=== PATIENT | male | born 1965 | race African-American/Black ===

== ENCOUNTER 2017-07-27 17:25 | Emergency (ER) | payer MEDICARE ==
[2017-07-27 17:35] VITALS: BP 112/72
--- NOTE | 2017-07-27 19:07 | Emergency Department Report ---
ED Allergic Reaction HPI - General Chief complaint: Upper Respiratory Infection Stated complaint: HEADACHE Time Seen by Provider: 07/27/17 18:46 Source: patient Mode of arrival: Ambulatory Limitations: No Limitations - History of Present Illness Initial Comments: Patient is a 51-year-old gentleman who is presenting with cough congestion and headache. Patient states symptoms been present for about 2 days. Patient is a cough productive of clear sputum. Patient is a pressure sensation in the forehead that he states is 8 out of 10 in severity. Patient says rhinorrhea. Patient denies any nausea vomiting next if no sore throat at this time. - Related Data Home Medications Medication Instructions Recorded Confirmed Last Taken Fenofibrate Nanocrystallized 48 mg PO DAILY 03/07/14 03/07/14 03/06/14 [Fenofibrate] 2000 SUMAtriptan SUCCINATE [Sumatriptan 100 mg PO PRN PRN 03/07/14 03/07/14 03/07/14 Succinate] 0005 Previous Rx's Medication Instructions Recorded Last Taken Type Azithromycin [Zithromax Z-SKYLER] 250 mg PO DAILY #6 tablet 03/07/14 Unknown Rx HYDROcodone/APAP 10-325 [[place] 1 each PO Q6HR PRN #16 tablet 03/07/14 Unknown Rx 10-325 mg TAB] predniSONE [Deltasone] 20 mg PO TID #15 tab 03/07/14 Unknown Rx Dicyclomine [Bentyl] 20 mg PO QID #30 tablet 03/26/15 Unknown Rx Ibuprofen [Motrin 600 MG tab] 600 mg PO Q8H PRN #30 tablet 03/26/15 Unknown Rx ALBUTEROL Inhaler [ProAir HFA 2 puff IH QID PRN #1 inhalation 07/27/17 Unknown Rx Inhaler] Amoxicillin/Potassium Clav 1 each PO BID #14 tablet 07/27/17 Unknown Rx [Augmentin 875-125 Tablet] HYDROcodone/APAP 5-325 [[place] 1 each PO Q4HR PRN #12 tablet 07/27/17 Unknown Rx 5/325] Allergies Allergy/AdvReac Type Severity Reaction Status Date / Time No Known Allergies Allergy Unverified 03/07/14 04:02 ED Review of Systems ROS: Stated complaint: HEADACHE Other details as noted in HPI Comment: All other systems reviewed and negative ED Past Medical Hx - Past Medical History Hx GERD: Yes Hx Headaches / Migraines: Yes Additional medical history: hyperlipidemia - Social History Smoking Status: Never Smoker Substance Use Type: None - Medications Home Medications: Home Medications Medication Instructions Recorded Confirmed Last Taken Type Azithromycin [Zithromax Z-SKYLER] 250 mg PO DAILY #6 tablet 03/07/14 Unknown Rx Fenofibrate Nanocrystallized 48 mg PO DAILY 03/07/14 03/07/14 03/06/14 History [Fenofibrate] 2000 HYDROcodone/APAP 10-325 [[place] 1 each PO Q6HR PRN #16 tablet 03/07/14 Unknown Rx 10-325 mg TAB] SUMAtriptan SUCCINATE [Sumatriptan 100 mg PO PRN PRN 03/07/14 03/07/14 03/07/14 History Succinate] 0005 predniSONE [Deltasone] 20 mg PO TID #15 tab 03/07/14 Unknown Rx Dicyclomine [Bentyl] 20 mg PO QID #30 tablet 03/26/15 Unknown Rx Ibuprofen [Motrin 600 MG tab] 600 mg PO Q8H PRN #30 tablet 03/26/15 Unknown Rx ALBUTEROL Inhaler [ProAir HFA 2 puff IH QID PRN #1 inhalation 07/27/17 Unknown Rx Inhaler] Amoxicillin/Potassium Clav 1 each PO BID #14 tablet 07/27/17 Unknown Rx [Augmentin 875-125 Tablet] HYDROcodone/APAP 5-325 [[place] 1 each PO Q4HR PRN #12 tablet 07/27/17 Unknown Rx 5/325] ED Physical Exam - General Limitations: No Limitations General appearance: alert, in no apparent distress - Head Head exam: Present: atraumatic, normocephalic, other (he has frontal sinus tenderness) - Eye Eye exam: Present: normal appearance - ENT ENT exam: Present: mucous membranes moist - Neck Neck exam: Present: normal inspection - Respiratory Respiratory exam: Present: normal lung sounds bilaterally. Absent: respiratory distress, wheezes, rales, rhonchi - Cardiovascular Cardiovascular Exam: Present: regular rate, normal rhythm. Absent: systolic murmur, diastolic murmur, rubs, gallop - GI/Abdominal GI/Abdominal exam: Present: soft, normal bowel sounds - Rectal Rectal exam: Present: deferred - Extremities Exam Extremities exam: Present: normal inspection - Back Exam Back exam: Present: normal inspection - Neurological Exam Neurological exam: Present: alert, oriented X3 - Psychiatric Psychiatric exam: Present: normal affect, normal mood - Skin Skin exam: Present: warm, dry, intact, normal color. Absent: rash ED Course Vital Signs 07/27/17 17:33 Temperature 98 F Pulse Rate 98 H Respiratory 18 Rate Blood Pressure 112/72 O2 Sat by Pulse 98 Oximetry ED Medical Decision Making - Medical Decision Making Be treated for acute sinusitis Critical care attestation.: If time is entered above; I have spent that time in minutes in the direct care of this critically ill patient, excluding procedure time. ED Disposition Clinical Impression: Sinusitis Qualifiers: Sinusitis location: frontal Chronicity: acute Recurrence: non-recurrent Qualified Code(s): J01.10 - Acute frontal sinusitis, unspecified Disposition: - TO HOME OR SELFCARE Is pt being admited?: No Does the pt Need Aspirin: No Condition: Stable Instructions: Sinusitis (ED) Referrals: [facility] [Outside] - 3-5 Days
== END 2017-07-27 19:26 | disposition home or self-care (01) ==
LOC: ED 17:25
DX: J32.1 Chronic frontal sinusitis (principal); K21.9 Gastro-esophageal reflux disease without esophagitis; G43.909 Migraine, unspecified, not intractable, without status migrainosus
CPT/HCPCS: 99282

== ENCOUNTER 2017-08-06 17:54 | Emergency (ER) | payer MEDICARE ==
[2017-08-06 20:24] VITALS: BP 108/72
[2017-08-06] MEDS ORDERED: MOTRIN PO ONE (21:59)
--- NOTE | 2017-08-06 21:59 | Emergency Department Report ---
ED Extremity Problem HPI - General Chief complaint: Extremity Problem,Nontraumatic Stated complaint: LEFT FOOT PAIN Time Seen by Provider: 08/06/17 21:48 Source: patient Mode of arrival: Ambulatory Limitations: No Limitations - History of Present Illness Initial comments: 51-year-old [place] male comes in complaint of left foot pain that started yesterday. Patient reports that his swelling and pain. He denies any trauma no fever no chills no nausea no vomiting. Denies any alcohol or smoking. He reports is not working. He reports he did not take any pain medication. She was recently seen here on 07/27/2017 was placed on Augmentin and [place] for pain. Patient was being treated for sinusitis. MD Complaint: extremity pain, extremity swelling -: days(s) (1) Location: left, other (foot) History of Same: No Severity scale (0 -10): 7 Quality: aching Consistency: intermittent Worsens with: weight bearing, walking Associated Symptoms: denies other symptoms - Related Data Home Medications Medication Instructions Recorded Confirmed Last Taken Fenofibrate Nanocrystallized 48 mg PO DAILY 03/07/14 03/07/14 03/06/14 [Fenofibrate] 2000 SUMAtriptan SUCCINATE [Sumatriptan 100 mg PO PRN PRN 03/07/14 03/07/14 03/07/14 Succinate] 0005 Previous Rx's Medication Instructions Recorded Last Taken Type Azithromycin [Zithromax Z-SKYLER] 250 mg PO DAILY #6 tablet 03/07/14 Unknown Rx HYDROcodone/APAP 10-325 [[place] 1 each PO Q6HR PRN #16 tablet 03/07/14 Unknown Rx 10-325 mg TAB] predniSONE [Deltasone] 20 mg PO TID #15 tab 03/07/14 Unknown Rx Dicyclomine [Bentyl] 20 mg PO QID #30 tablet 03/26/15 Unknown Rx Ibuprofen [Motrin 600 MG tab] 600 mg PO Q8H PRN #30 tablet 03/26/15 Unknown Rx ALBUTEROL Inhaler [ProAir HFA 2 puff IH QID PRN #1 inhalation 07/27/17 Unknown Rx Inhaler] Amoxicillin/Potassium Clav 1 each PO BID #14 tablet 07/27/17 Unknown Rx [Augmentin 875-125 Tablet] HYDROcodone/APAP 5-325 [[place] 1 each PO Q4HR PRN #12 tablet 07/27/17 Unknown Rx 5/325] Ibuprofen [Motrin 800 MG tab] 800 mg PO Q8HR #15 tablet 08/06/17 Unknown Rx Allergies Allergy/AdvReac Type Severity Reaction Status Date / Time No Known Allergies Allergy Verified 08/06/17 20:20 ED Review of Systems ROS: Stated complaint: LEFT FOOT PAIN Other details as noted in HPI Comment: All other systems reviewed and negative Musculoskeletal: joint swelling (left foot medial first metatarsal), arthralgia (left foot medial first metatarsal) ED Past Medical Hx - Past Medical History Previous Medical History?: Yes Hx GERD: Yes Hx Headaches / Migraines: Yes Additional medical history: hyperlipidemia - Surgical History Past Surgical History?: No - Social History Smoking Status: Never Smoker Substance Use Type: None - Medications Home Medications: Home Medications Medication Instructions Recorded Confirmed Last Taken Type Azithromycin [Zithromax Z-SKYLER] 250 mg PO DAILY #6 tablet 03/07/14 Unknown Rx Fenofibrate Nanocrystallized 48 mg PO DAILY 03/07/14 03/07/14 03/06/14 History [Fenofibrate] 2000 HYDROcodone/APAP 10-325 [[place] 1 each PO Q6HR PRN #16 tablet 03/07/14 Unknown Rx 10-325 mg TAB] SUMAtriptan SUCCINATE [Sumatriptan 100 mg PO PRN PRN 03/07/14 03/07/14 03/07/14 History Succinate] 0005 predniSONE [Deltasone] 20 mg PO TID #15 tab 03/07/14 Unknown Rx Dicyclomine [Bentyl] 20 mg PO QID #30 tablet 03/26/15 Unknown Rx Ibuprofen [Motrin 600 MG tab] 600 mg PO Q8H PRN #30 tablet 03/26/15 Unknown Rx ALBUTEROL Inhaler [ProAir HFA 2 puff IH QID PRN #1 inhalation 07/27/17 Unknown Rx Inhaler] Amoxicillin/Potassium Clav 1 each PO BID #14 tablet 07/27/17 Unknown Rx [Augmentin 875-125 Tablet] HYDROcodone/APAP 5-325 [[place] 1 each PO Q4HR PRN #12 tablet 07/27/17 Unknown Rx 5/325] Ibuprofen [Motrin 800 MG tab] 800 mg PO Q8HR #15 tablet 08/06/17 Unknown Rx ED Physical Exam - General Limitations: No Limitations General appearance: alert, in no apparent distress - Expanded Lower Extremity Exam Left Hip exam: Present: normal inspection, full ROM Upper Leg exam: Present: normal inspection, full ROM Knee exam: Present: normal inspection, full ROM Lower Leg exam: Present: normal inspection, full ROM Ankle exam: Present: normal inspection, full ROM Foot/Toe exam: Present: normal inspection, full ROM, tenderness (left foot medial first metatarsal). Absent: swelling, abrasion, laceration, ecchymosis, deformity, dislocation, erythema ED Course Vital Signs 08/06/17 20:21 Temperature 98.5 F Pulse Rate 66 Respiratory 16 Rate Blood Pressure 108/72 O2 Sat by Pulse 96 Oximetry ED Medical Decision Making - Medical Decision Making Patient's been evaluated but this provider fast track. Discussed the patient that he has had no trauma he's been on pain medication and has been on antibiotics. Discussed the patient he can try ibuprofen 800 mg. If symptoms persist he should follow up with his primary care provider Dr. Hess Critical care attestation.: If time is entered above; I have spent that time in minutes in the direct care of this critically ill patient, excluding procedure time. ED Disposition Clinical Impression: Foot pain, left Disposition: DC-01 TO HOME OR SELFCARE Is pt being admited?: No Does the pt Need Aspirin: No Condition: Stable Additional Instructions: Please take pain medication as prescribed. If symptoms persist or gets worse please follow up with her primary care provider. I highly recommended to change her shoes. Prescriptions: Ibuprofen [Motrin 800 MG tab] 800 mg PO Q8HR #15 tablet Referrals: PRIMARY CARE, [Primary Care Provider] - 3-5 Days
== END 2017-08-06 22:17 | disposition home or self-care (01) ==
LOC: ED 17:54
DX: M79.672 Pain in left foot (principal); K21.9 Gastro-esophageal reflux disease without esophagitis; E78.5 Hyperlipidemia, unspecified; G43.909 Migraine, unspecified, not intractable, without status migrainosus
CPT/HCPCS: 99282

== ENCOUNTER 2018-07-16 07:39 | Emergency (ER) | payer MEDICARE ==
[2018-07-16 07:44] VITALS: BP 118/68
--- NOTE | 2018-07-16 09:04 | Emergency Department Report ---
ED General Adult HPI - General Chief complaint: Abdominal Pain Stated complaint: HEADACHE/BODY ACHES Time Seen by Provider: 07/16/18 08:56 Source: patient Mode of arrival: Ambulatory Limitations: No Limitations - History of Present Illness Initial comments: Patient is 52 years old male, nontoxic, past medical history of GERD and migraine. Patient presented to the ER complaining of headache, abdominal pain and bilateral leg pain. Patient stated that he was diagnosed with pinched nerve in both leg and he is taking medication for that. Described his pain as epigastric for the last 5 days, burning sensation with no radiation. Patient denied any fever or chills. No cough, congestion or runny nose. Severity scale (0 -10): 9 - Related Data Home Medications Medication Instructions Recorded Confirmed Last Taken Fenofibrate Nanocrystallized 48 mg PO DAILY 03/07/14 03/07/14 03/06/14 [Fenofibrate] 2000 SUMAtriptan succinate [Sumatriptan 100 mg PO PRN PRN 03/07/14 03/07/14 03/07/14 Succinate] 0005 Previous Rx's Medication Instructions Recorded Last Taken Type Azithromycin [Zithromax Z-SKYLER] 250 mg PO DAILY #6 tablet 03/07/14 Unknown Rx HYDROcodone/APAP 10-325 [[place] 1 each PO Q6HR PRN #16 tablet 03/07/14 Unknown Rx 10-325 mg TAB] predniSONE [Deltasone] 20 mg PO TID #15 tab 03/07/14 Unknown Rx Dicyclomine [Bentyl] 20 mg PO QID #30 tablet 03/26/15 Unknown Rx Ibuprofen [Motrin 600 MG tab] 600 mg PO Q8H PRN #30 tablet 03/26/15 Unknown Rx ALBUTEROL Inhaler (OR & NICU) 2 puff IH QID PRN #1 inhalation 07/27/17 Unknown Rx [ProAir HFA Inhaler] Amoxicillin/Potassium Clav 1 each PO BID #14 tablet 07/27/17 Unknown Rx [Augmentin 875-125 Tablet] HYDROcodone/APAP 5-325 [[place] 1 each PO Q4HR PRN #12 tablet 07/27/17 Unknown Rx 5/325] Ibuprofen [Motrin 800 MG tab] 800 mg PO Q8HR #15 tablet 08/06/17 Unknown Rx Amoxicillin/Potassium Clav 1 each PO BID #14 tablet 02/01/18 Unknown Rx [Augmentin 875-125 Tablet] Fluticasone [Flonase] 1 spray NS QDAY #1 bottle 02/01/18 Unknown Rx predniSONE [Deltasone] 20 mg PO QDAY #5 tab 02/01/18 Unknown Rx traMADol [Ultram] 50 mg PO Q6HR PRN #10 tablet 02/01/18 Unknown Rx Allergies Allergy/AdvReac Type Severity Reaction Status Date / Time No Known Allergies Allergy Verified 07/16/18 07:41 ED Review of Systems ROS: Stated complaint: HEADACHE/BODY ACHES Other details as noted in HPI Comment: All other systems reviewed and negative Constitutional: denies: chills, fever Respiratory: denies: cough, orthopnea, shortness of breath, SOB with exertion, SOB at rest, wheezing Cardiovascular: denies: chest pain, palpitations Gastrointestinal: abdominal pain. denies: nausea, vomiting, diarrhea, constipation, hematemesis, melena, hematochezia Musculoskeletal: denies: back pain Neurological: denies: headache, weakness, numbness, paresthesias, confusion ED Past Medical Hx - Past Medical History Hx GERD: Yes Hx Headaches / Migraines: Yes Additional medical history: hyperlipidemia - Surgical History Past Surgical History?: No - Social History Smoking Status: Never Smoker Substance Use Type: None - Medications Home Medications: Home Medications Medication Instructions Recorded Confirmed Last Taken Type Azithromycin [Zithromax Z-SKYLER] 250 mg PO DAILY #6 tablet 03/07/14 Unknown Rx Fenofibrate Nanocrystallized 48 mg PO DAILY 03/07/14 03/07/14 03/06/14 History [Fenofibrate] 2000 HYDROcodone/APAP 10-325 [[place] 1 each PO Q6HR PRN #16 tablet 03/07/14 Unknown Rx 10-325 mg TAB] SUMAtriptan succinate [Sumatriptan 100 mg PO PRN PRN 03/07/14 03/07/14 03/07/14 History Succinate] 0005 predniSONE [Deltasone] 20 mg PO TID #15 tab 03/07/14 Unknown Rx Dicyclomine [Bentyl] 20 mg PO QID #30 tablet 03/26/15 Unknown Rx Ibuprofen [Motrin 600 MG tab] 600 mg PO Q8H PRN #30 tablet 03/26/15 Unknown Rx ALBUTEROL Inhaler (OR & NICU) 2 puff IH QID PRN #1 inhalation 07/27/17 Unknown Rx [ProAir HFA Inhaler] Amoxicillin/Potassium Clav 1 each PO BID #14 tablet 07/27/17 Unknown Rx [Augmentin 875-125 Tablet] HYDROcodone/APAP 5-325 [[place] 1 each PO Q4HR PRN #12 tablet 07/27/17 Unknown Rx 5/325] Ibuprofen [Motrin 800 MG tab] 800 mg PO Q8HR #15 tablet 08/06/17 Unknown Rx Amoxicillin/Potassium Clav 1 each PO BID #14 tablet 02/01/18 Unknown Rx [Augmentin 875-125 Tablet] Fluticasone [Flonase] 1 spray NS QDAY #1 bottle 02/01/18 Unknown Rx predniSONE [Deltasone] 20 mg PO QDAY #5 tab 02/01/18 Unknown Rx traMADol [Ultram] 50 mg PO Q6HR PRN #10 tablet 02/01/18 Unknown Rx ED Physical Exam - General Limitations: No Limitations General appearance: alert, in no apparent distress - Head Head exam: Present: atraumatic, normocephalic, normal inspection - Eye Eye exam: Present: normal appearance, PERRL - ENT ENT exam: Present: normal exam, normal orophraynx, mucous membranes moist - Neck Neck exam: Present: normal inspection, full ROM. Absent: tenderness, meningismus, lymphadenopathy, thyromegaly - Respiratory Respiratory exam: Present: normal lung sounds bilaterally - Cardiovascular Cardiovascular Exam: Present: regular rate, normal rhythm, normal heart sounds - GI/Abdominal GI/Abdominal exam: Present: soft, normal bowel sounds. Absent: distended, tenderness, guarding, rebound, rigid, organomegaly, mass, bruit, pulsatile mass, hernia - Extremities Exam Extremities exam: Present: normal inspection, full ROM, normal capillary refill - Back Exam Back exam: Present: normal inspection, full ROM. Absent: tenderness, CVA tenderness (R), CVA tenderness (L), muscle spasm, paraspinal tenderness, vertebral tenderness - Neurological Exam Neurological exam: Present: alert, oriented X3, CN II-XII intact, normal gait, reflexes normal - Skin Skin exam: Present: warm, intact, normal color ED Course Vital Signs 07/16/18 07:42 Temperature 98.2 F Pulse Rate 66 Respiratory 18 Rate Blood Pressure 118/68 O2 Sat by Pulse 97 Oximetry ED Medical Decision Making - Lab Data Result diagrams: 07/16/18 09:08 07/16/18 09:06 - Medical Decision Making Patient is 52 years old male, nontoxic, past medical history of GERD and migraine. Patient presented to the ER complaining of headache, abdominal pain and bilateral leg pain. Patient stated that he was diagnosed with pinched nerve in both leg and he is taking medication for that. Described his pain as epigastric for the last 5 days, burning sensation with no radiation. Patient denied any fever or chills. No cough, congestion or runny nose. Labs reviewed that is unremarkable. Patient's symptoms is related to his chronic medical problems include GERD and migraine and neuropathy. Advised patient to follow with his primary care physician in the next 2-3 then to return to the ER if symptoms get worse. Critical care attestation.: If time is entered above; I have spent that time in minutes in the direct care of this critically ill patient, excluding procedure time. ED Disposition Clinical Impression: Headache, Abdominal pain Disposition: -01 TO HOME OR SELFCARE Is pt being admited?: No Condition: Stable Instructions: Abdominal Pain (ED), Migraine Headache (ED) Referrals: KYLE KAMINSKI MD [Primary Care Provider] - 3-5 Days
[2018-07-16 09:39] LABS: Alanine Aminotransferase 27 units/L (7-56); BUN/Creatinine Ratio 8; Blood Urea Nitrogen 9 mg/dL (9-20); Calcium 9.2 mg/dL (8.4-10.2); Hemolysis Index 10
[2018-07-16 10:27] LABS: Basophils % (Auto) 0.5 % (0.0-1.8); Eosinophils # (Auto) 0.1 K/mm3 (0.0-0.4); Hematocrit 45.4 % (35.5-45.6); Hemoglobin 15.1 gm/dl (11.8-15.2); Lymphocytes % (Auto) 34.9 % (13.4-35.0); Mean Corpuscular HGB Conc 33 % (32-34); Mean Corpuscular Volume 81 fl (84-94); Monocytes # (Auto) 0.4 K/mm3 (0.0-0.8); Platelet Count 235 K/mm3 (140-440); Red Blood Count 5.63 M/mm3 (3.65-5.03); Red Cell Distribution Width 14.2 % (13.2-15.2)
[2018-07-16 11:39] LABS: Bilirubin,Urine NEG (Negative); Blood,Urine NEG (Negative); Color,Urine Yellow (Yellow); Mucus,Urine FEW /HPF; Protein,Urine <15 mg/dL mg/dL (Negative); Urobilinogen,Urine < 2.0 mg/dL (<2.0)
[2018-07-16] MEDS ORDERED: TORADOL IM ONE (11:49)
== END 2018-07-16 12:10 | disposition home or self-care (01) ==
LOC: ED 07:39
DX: R51 Headache (principal); R10.13 Epigastric pain; M79.605 Pain in left leg; M79.604 Pain in right leg; K21.9 Gastro-esophageal reflux disease without esophagitis; G43.909 Migraine, unspecified, not intractable, without status migrainosus; Z79.899 Other long term (current) drug therapy
CPT/HCPCS: 36415; 80053; 81001; 83690; 85025; 96372; 99283; J1885